=== PATIENT | male | born 1950 | race Caucasian/White ===

== ENCOUNTER → 2016-12-16 | Outpatient (CLI) | payer OTHER ==
[~2016-12-16] MED LIST: ACET1TAB84 PO; METO25TA3 PO
[2016-12-16 16:45] LABS: HEMATOCRIT 50.9 % (42-52); MEAN CELL VOLUME 86.9 fL (80-100); MEAN CORPUSCULAR HEMOGLOBIN 30.5 pg (25-34); MEAN CORPUSCULAR HGB CONC 35.2 g/dl (32-36); MEAN PLATELET VOLUME 9.5 fL (7.4-10.4); PLATELET COUNT 179 K/uL (130-400); RED BLOOD COUNT 5.86 M/uL (4.7-6.1); WHITE BLOOD COUNT 6.62 K/uL (4.8-10.8)
[2016-12-16 17:16] LABS: CALCIUM 9.7 mg/dl (8.5-10.1)
[2016-12-16 17:21] LABS: BLOOD UREA NITROGEN 14 mg/dl (7-18); BUN/CREATININE RATIO 12.4 (10-20); CARBON DIOXIDE 26 mmol/L (21-32); CHLORIDE 106 mmol/L (98-107); CHOLESTEROL 171 mg/dl (0-200); GLUCOSE 110 mg/dl (70-99); POTASSIUM 4.1 mmol/L (3.5-5.1); SODIUM 140 mmol/L (136-145)
[2016-12-16 17:26] LABS: CHOLESTEROL/HDL RATIO 3.8; FERRITIN 381.3 ng/ml (8.0-388.0); HDL CHOLESTEROL 45 mg/dl; LDL CHOLESTEROL CALCULATED 99 mg/dl; TOTAL IRON BINDING CAPACITY 367 mcg/dl (250-450); TRIGLYCERIDES 136 mg/dl (0-150); VERY LOW DENSITY LIPOPROT CALC 27 mg/dl
== END | disposition home or self-care (01) ==
LOC: C.LABBC 14:40
PROVIDERS: ATTEND Physician Assistant Medical
DX: E83.119 Hemochromatosis, unspecified (principal); I10 Essential (primary) hypertension; Z00.00 Encounter for general adult medical examination without abnormal findings

== ENCOUNTER → 2017-04-27 | Outpatient (CLI) | payer OTHER ==
[2017-04-27 17:45] LABS: BASO % 0.6 %; BASO ABS # 0.04 K/uL (0-0.2); COMPLETE YES; HEMATOCRIT 47.8 % (42-52); IG% 0.3 %; LYMPH % 40.6 %; LYMPH ABS # 2.58 K/uL (1.2-3.4); MEAN CELL VOLUME 86.8 fL (80-100); MEAN CORPUSCULAR HEMOGLOBIN 31.6 pg (25-34); MEAN CORPUSCULAR HGB CONC 36.4 g/dl (32-36); MEAN PLATELET VOLUME 9.3 fL (7.4-10.4); MONO % 10.6 %; NEUT % 42.9 %; PLATELET COUNT 159 K/uL (130-400); RED BLOOD COUNT 5.51 M/uL (4.7-6.1); WHITE BLOOD COUNT 6.35 K/uL (4.8-10.8)
[2017-04-27 18:12] LABS: FERRITIN 276.9 ng/ml (8.0-388.0); PROSTATE SPECIFIC ANTIGEN 1.89 ng/ml (0.000-4.000)
== END | disposition home or self-care (01) ==
LOC: C.LABBFT 15:40
PROVIDERS: ATTEND Internal Medicine
DX: Z00.00 Encounter for general adult medical examination without abnormal findings (principal); E83.119 Hemochromatosis, unspecified

== ENCOUNTER → 2017-09-13 | Outpatient (CLI) | payer OTHER ==
[2017-09-13 17:54] LABS: BASO % 0.5 %; BASO ABS # 0.03 K/uL (0-0.2); EOS ABS # 0.25 K/uL (0-0.5); HEMATOCRIT 48.9 % (42-52); HEMOGLOBIN 17.7 g/dL (14.0-18.0); IG# 0.02 K/uL (0.00-0.02); LYMPH % 35.8 %; LYMPH ABS # 2.21 K/uL (1.2-3.4); MEAN CELL VOLUME 87.8 fL (80-100); MEAN CORPUSCULAR HEMOGLOBIN 31.8 pg (25-34); MEAN CORPUSCULAR HGB CONC 36.2 g/dl (32-36); MEAN PLATELET VOLUME 9.3 fL (7.4-10.4); MONO % 11.5 %; MONO ABS # 0.71 K/uL (0.11-0.59); NEUT % 47.9 %; NEUT ABS # 2.96 K/uL (1.4-6.5); PLATELET COUNT 155 K/uL (130-400); RED CELL DISTRIBUTION WIDTH CV 13.2 % (11.5-14.5); RED CELL DISTRIBUTION WIDTH SD 42.2 fL (36.4-46.3); WHITE BLOOD COUNT 6.18 K/uL (4.8-10.8)
== END | disposition home or self-care (01) ==
LOC: C.LABBFT 14:40
PROVIDERS: ATTEND Internal Medicine
DX: E83.119 Hemochromatosis, unspecified (principal)

== ENCOUNTER → 2017-09-20 | Outpatient (CLI) | payer OTHER ==
--- NOTE | 2017-09-20 17:48 | DIAGNOSTIC IMAGING REPORT ---
CHEST 2 VIEWS ROUTINE CLINICAL HISTORY: COUGH COMPARISON STUDY: Chest radiograph March 30, 2014. FINDINGS: Lung volumes are mildly diminished. No pneumothorax or pleural effusion is noted. Linear left lung opacity suggests atelectasis. No consolidation to suggest pneumonia. Cardiomediastinal silhouette is stable. Pulmonary vascularity is normal. IMPRESSION: No acute cardiopulmonary findings. Electronically signed by: Jovan Yun M.D. 09/20/2017 5:47 PM Dictated Date/Time: 09/20/2017 5:46 PM
== END | disposition home or self-care (01) ==
LOC: C.RAD 17:31
PROVIDERS: ATTEND Nurse Practitioner Adult Health
DX: R05 Cough (principal)

== ENCOUNTER 2025-01-02 16:12 | Inpatient (IN) ==
--- NOTE | 2025-01-02 16:49 | Emergency Department Note ---
Impression & Plan SBO (small bowel obstruction) ADMIT ED Provider Note HPI: History obtained from patient. The patient is a 74-year-old gentleman with history of small bowel obstruction, who presents the emergency department with a chief complaint of nausea, vomiting, and diarrhea. Patient states his symptoms began this morning at about 9 AM with diarrhea. Patient states actually on arrival here to the ED that his symptoms are largely improved. He states when he did have bouts of diarrhea and vomiting they were fairly severe. Patient denies any chest pain or shortness of breath. On arrival here to the ED the patient is hemodynamically stable, he otherwise appears to be in no acute distress. ROS: - Per HPI Differential Diagnosis: Small bowel obstruction, viral gastroenteritis, acute cholecystitis, acute appendicitis, diverticulitis flare, colitis, amongst other potential pathologies. *Outpatient medications and allergy history reviewed. PE: General: Alert HEENT: Normocephalic, trachea midline Eyes: Extraocular eye movement is intact, no scleral erythema Pulmonary: Clear to auscultation bilaterally, no wheezing Cardio: Regular rate and rhythm GI: Abdomen is soft to palpation, there is moderate distention : No suprapubic tenderness MSK: No evidence of trauma or malformation of the extremities, no edema Skin: No evidence of rash Neuro: Alert, no focal deficits Psychiatric: Cooperative INDEPENDENT INTERPRETATIONS: classroom monitor: (As interpreted by myself): - An order was placed for continuous cardiac monitoring - Patient was noted to be in sinus rhythm with a rate of 70 EKG: (As interpreted by myself): Rate: 94 Rhythm: Normal sinus rhythm Intervals: Within normal limits ST changes: No ST elevation Time: 1654 Interventions provided in ED: - IV fluid bolus Medical Decision Making: IV was established and lab work obtained, patient was placed on diagnostic cardiac sonographer. Lab work shows a mild leukocytosis at 12.29, hemoglobin is slightly elevated at 18.6, platelet count is normal, CMP does not show any evidence of any critical findings. Troponin is negative x 1. EKG shows normal sinus rhythm without any acute ischemic changes. CT imaging of the abdomen pelvis was obtained and is suggestive of a small bowel obstruction. Patient has not had any active vomiting here in the ED, he was ordered IV fluids. Will forego NG tube at this point given the patient's lack of vomiting. I did discuss the patient's presentation with the on-call hospitalist, Dr. Horan, the patient was placed for admission in stable condition for further care. Consultants/Discussions held with other healthcare providers: - Hospitalist, Dr. Horan Disposition discussion held by myself with: - Patient and family at bedside Diagnosis: 1. Small bowel obstruction, acute 2. Diarrhea, acute 3. Nausea and vomiting, acute Disposition: Admission Fransisco Juarez DO Emergency Medicine Past Med/Surg History Problem List (Updated 01/02/25 @ 21:57 by Fransisco Juarez DO) SBO (small bowel obstruction) (Acute) Small bowel obstruction Encounter for pre-operative examination Esophagitis LA Grade C on EGD Dysphagia Nasal polyp History of squamous cell carcinoma face, left hand Erectile dysfunction Hereditary hemochromatosis Obesity (BMI 30-39.9) Prediabetes (Chronic) Vitamin D deficiency Chronic low back pain (Acute) Hemochromatosis (Acute) Hyperlipidemia (Acute) Hypertension (Acute) BPH w/o urinary obs/LUTS (Acute) Neurogenic claudication (Acute) Simple goiter (Acute) Medical History Hearing loss Bilateral Hearing Aids Esophagitis LA Grade C on EGD - reason for repeat procedure 01/03/25 Neurogenic claudication Hereditary hemochromatosis Swallowing difficulty hx - pts states no longer a problem after procedure 11/11/24 Simple goiter denies- per record Chronic low back pain Hypertension BPH (benign prostatic hyperplasia) Hyperlipidemia Prediabetes no longer taking Oral as per History of skin cancer on face Osteoarthritis History of kidney stones Anxiety Colon polyps Partial small bowel obstruction (03/30/14) Surgical History History of tooth extraction Upper Denture History of esophagogastroduodenoscopy (EGD) (11/11/24) History of cystoscopy History of colon resection History of wisdom tooth extraction History of excision of mass FACE. Malignant - 1.1 to 2cm. Status post surgery adjacent tissue transfer - cheeks. 10 sq cm or less. --under eyes H/O colonoscopy (2020) Hx of rotator cuff surgery right Hx of cholecystectomy Family History Brother Hemochromatosis Hypertension Father Memory loss Hemochromatosis Hypertension Mother , age 65 No problems noted. Other No family history of adverse response to anesthesia Denies family history of Ovarian cancer Prostate cancer Myocardial infarction Breast cancer Colorectal cancer Social History Smoking Status: Never smoker Tobacco Type: Smokeless Tobacco (Dip or Chew) Second Hand Exposure: No; Do You Dip or Chew Tobacco: No; Hx Alcohol Use: Yes Alcohol type: beer Alcohol Intake Frequency: Monthly or Less Hx Substance Use: No Preferred Language: Nauruan Communication Ability: Effective Visual Impairment: No Limitations Hearing Ability: Use of Hearing Aid Mac Operator Required: No Beliefs That Will Affect Care: None marital status: Current Living Situation: Spouse current occupational status: employed current occupation: self employed 2 days a week How many Children do You have: 3 Feels Safe at Home: Yes Childhood Exposure to Second-Hand Smoke: Yes caffeine: Yes (soda) Dental Care, Regularly: Yes Physical Activity Frequency: 5-6 Times per Week Seatbelt Use: always Sunscreen Use: Yes Assistive Devices: Denture - Upper and Hearing Aid - Bilateral Allergies Allergies Allergy/AdvReac Type Severity Reaction Status Date / Time No Known Allergies Allergy Verified 01/02/25 18:32 Home Meds Home Medications Medication Instructions Recorded Confirmed cholecalciferol (vitamin D3) 50 2,000 unit PO DAILY 06/18/21 01/02/25 mcg (2,000 unit) capsule atorvastatin 10 mg tablet 10 mg PO QAM 10/31/24 01/02/25 nystatin-triamcinolone 100,000 1 applic topical BID PRN prn 10/31/24 01/02/25 unit/gram-0.1 % topical ointment olmesartan 20 mg tablet 10 mg PO QAM 10/31/24 01/02/25 sildenafil (pulm.hypertension) 20 20 mg PO UD PRN prn 10/31/24 01/02/25 mg tablet Previous Rx's Medication Instructions Recorded metformin 500 mg tablet,extended 1,000 mg (2 x 500 mg) PO DAILY 06/10/24 release 24 hr #180 tabs pantoprazole 40 mg tablet,delayed 40 mg PO BID #60 tabs 11/11/24 release lorazepam 0.5 mg tablet 0.5 mg PO DAILY PRN 11/12/24 ANXIETY/AGITATION #30 tabs ondansetron HCl 4 mg tablet 4 mg PO Q8H PRN nausea and 01/02/25 vomiting #10 tabs Results & Data (ED) Vital Signs Vital Signs - 24 hr 01/02/25 16:15 01/02/25 16:44 01/02/25 18:09 Temperature 36.4 C L Temperature Source Temporal Artery Scan Pulse Rate 99 H 90 Pulse Rate [Apical] 92 H Respiratory Rate 18 21 17 Respiratory Effort / Characteristics Non-Labored Spontaneous Respiratory Depth Normal Respiratory Pattern Regular Blood Pressure 129/88 Blood Pressure [Right Arm] 145/95 H Blood Pressure Mean 101 Blood Pressure Mean [Right Arm] 111 Pulse Oximetry 93 91 93 Oxygen Delivery Method Room Air Room Air Room Air Sepsis Recent Fever Within 48 Hours No Sepsis New/Unexplained Change in Mental Status N/A Sepsis Action Taken by Nursing No Action Required 01/02/25 18:31 01/02/25 19:08 01/02/25 19:39 Temperature Temperature Source Pulse Rate 81 76 Pulse Rate [Apical] 91 H Respiratory Rate 22 20 Respiratory Effort / Characteristics Respiratory Depth Respiratory Pattern Blood Pressure 144/73 H Blood Pressure [Right Arm] 144/100 H Blood Pressure Mean 97 Blood Pressure Mean [Right Arm] 114 Pulse Oximetry 93 93 Oxygen Delivery Method Room Air Room Air Sepsis Recent Fever Within 48 Hours Sepsis New/Unexplained Change in Mental Status Sepsis Action Taken by Nursing 01/02/25 20:00 01/02/25 20:30 01/02/25 21:00 Temperature Temperature Source Pulse Rate 77 73 71 Pulse Rate [Apical] Respiratory Rate 24 20 16 Respiratory Effort / Characteristics Respiratory Depth Respiratory Pattern Blood Pressure 134/69 144/79 H 106/83 Blood Pressure [Right Arm] Blood Pressure Mean 93 98 88 Blood Pressure Mean [Right Arm] Pulse Oximetry 92 94 94 Oxygen Delivery Method Room Air Room Air Room Air Sepsis Recent Fever Within 48 Hours Sepsis New/Unexplained Change in Mental Status Sepsis Action Taken by Nursing 01/02/25 21:30 Temperature Temperature Source Pulse Rate 69 Pulse Rate [Apical] Respiratory Rate 20 Respiratory Effort / Characteristics Respiratory Depth Respiratory Pattern Blood Pressure 136/71 Blood Pressure [Right Arm] Blood Pressure Mean 91 Blood Pressure Mean [Right Arm] Pulse Oximetry 94 Oxygen Delivery Method Room Air Sepsis Recent Fever Within 48 Hours Sepsis New/Unexplained Change in Mental Status Sepsis Action Taken by Nursing Laboratory Data 01/02/25 17:00 01/02/25 17:00 Lab Results 01/02/25 01/02/25 01/02/25 Range/Units 17:00 18:07 18:47 WBC 12.29 H (4.8-10.8) K/ul RBC 5.89 (4.70-6.10) M/uL Hgb 18.6 H (14.0-18.0) g/dl Hct 51.2 (42.0-52.0) % MCV 86.9 (80.0-100.0) fL MCH 31.6 (25.0-34.0) pg MCHC 36.3 H (32.0-36.0) g/dL RDW Std Deviation 41.1 (36.4-46.3) fL RDW Coeff of Conner 13.0 (11.5-14.5) % Plt Count 193 (130-400) K/uL MPV 8.9 L (9.4-12.4) fL Immature Gran % (Auto) 0.4 % Neut % (Auto) 87.3 % Lymph % (Auto) 6.0 % [place] % (Auto) 5.6 % Eos % (Auto) 0.3 % Baso % (Auto) 0.4 % Neut # (Auto) 10.72 H (1.40-6.50) K/uL Lymph # (Auto) 0.74 L (1.20-3.40) K/uL [place] # (Auto) 0.69 H (0.11-0.59) K/uL Eos # (Auto) 0.04 (0.00-0.50) K/uL Baso # (Auto) 0.05 (0.00-0.20) K/uL Immature Gran # (Auto) 0.05 (0.01-0.20) K/uL Sodium 139 (136-145) mmol/L Potassium 4.5 (3.5-5.1) mmol/L Chloride 105 (98-107) mmol/L Carbon Dioxide 25 (21-32) mmol/L Anion Gap 9 (3-11) BUN 11 (6-23) mg/dl Creatinine 0.88 (0.6-1.4) mg/dl Est Cr Clr Drug Dosing 101.2 ml/min eGFR 90.23 BUN/Creatinine Ratio 12.5 (10-20) Glucose 148 H (70-99(Fasting)) mg/dl Calcium 9.7 (8.6-10.3) mg/dl Total Bilirubin 1.5 H (0.2-1.0) mg/dl AST 23 (13-39) U/L ALT 26 (7-52) U/L Alkaline Phosphatase 58 (34-104) U/L Troponin I High Sens 11.8 (0-20) pg/ml Total Protein 7.7 (6.0-8.3) gm/dl Albumin 4.6 (3.4-5.0) gm/dl Globulin 3.1 (2.5-4.0) gm/dl Albumin/Globulin Ratio 1.5 (0.9-2) Lipase 14 (11-82) U/L Urine Color Dark Yellow Urine Appearance Clear (Clear) Urine pH 5.5 (4.5-7.5) Ur Specific [place] 1.030 (1.000-1.030) Urine Protein 1+ H (Negative) Urine Glucose (UA) Negative (Negative) Urine Ketones Trace H (Negative) Urine Blood Negative (Negative) Urine Nitrite Negative (Negative) Urine Bilirubin 1+ H (Negative) Urine Urobilinogen Negative (Negative) Ur Leukocyte Esterase 1+ H (Negative) Urine WBC (Auto) 0-5 (0-5) /hpf Urine RBC (Auto) 3-5 H (0-2) /hpf U Hyaline Cast (Auto) 0-2 (0-2) /lpf U Epithel Cells (Auto) 0-2 (0-2) /hpf Urine Bacteria (Auto) None Seen (None Seen) Urine Comment Stl C. cayetanensis PCR Not Detected (NotDetected) Stool Rotavirus A PCR Not Detected (NotDetected) Stl Adenov F 40/41 PCR Not Detected (NotDetected) Stool Astrovirus (PCR) Not Detected (NotDetected) Stool Campylobacter PCR Not Detected (NotDetected) Stl C. diff Tox B Gene Negative Cdiff Gene (Neg) Stl C. diff [id number] NEGATIVE Stool Cryptosporidium PCR Not Detected (NotDetected) Stl E.coli Shiga Tox PCR Not Detected (NotDetected) Stl Enterotoxigenic E PCR Not Detected (NotDetected) Stool EPEC (PCR) Not Detected (NotDetected) Stool EAEC (PCR) Not Detected (NotDetected) Stl E. histolytica PCR Not Detected (NotDetected) Stool Giardia Lamblia PCR Not Detected (NotDetected) Stool Salmonella PCR Not Detected (NotDetected) Stool Sapovirus (PCR) Not Detected (NotDetected) Stl P. shigelloides PCR Not Detected (NotDetected) Stl Shigella/EIEC PCR Not Detected (NotDetected) St Y.enterocolitica PCR Not Detected (NotDetected) Stool Vibrio (PCR) Not Detected (NotDetected) Stl Vibrio cholerae PCR Not Detected (NotDetected) Stl Norovirus GI/GII PCR Not Detected (NotDetected) Administered Medications Discontinued Medications Sodium Chloride (Nss) 500 mls @ 999 mls/hr IV .Q31M STA Stop: 01/02/25 17:18 Last Infusion: 01/02/25 17:37 Dose: Infused Documented By: Admin: 01/02/25 17:04 Dose: 999 mls/hr Documented By: CAP Sodium Chloride (Nss) 1,000 mls @ 999 mls/hr IV .Q1H1M ONE Stop: 01/02/25 19:24 Last Infusion: 01/02/25 19:33 Dose: Infused Documented By: Admin: 01/02/25 18:32 Dose: 999 mls/hr Documented By: ARLET Ioversol (Optiray 320 100ml) 93 ml IV ONCE ONE Stop: 01/02/25 18:04 Last Admin: 01/02/25 18:04 Dose: 93 ml Documented By: CHRISTINA Imaging Data Radiologist's Impression: Abdomen/Pelvis CT 01/02/25 17:08 Clinical History: Nausea and vomiting Technique: Axial computed tomography images were obtained of the abdomen and pelvis after the administration of intravenous contrast. No prior CT is available for comparison. Findings: The liver is overall of normal size, attenuation, and contour with no sign of cirrhosis or significant fatty infiltration. No liver mass lesion is seen. The portal vein is patent. The gallbladder appears to have been removed. No bile duct dilatation is noted. The spleen is enlarged measuring 15.8 cm. No focal splenic lesion is evident. The pancreas appears normal with no sign of acute or chronic pancreatitis and no mass lesion noted. The pancreatic duct is of normal caliber. The adrenal glands appear unremarkable. No definite renal or proximal ureteral calculi are seen on this contrast-enhanced study. There is no hydronephrosis or perinephric stranding. No renal mass lesion is identified. There are several left renal cysts, measuring up to 2 cm The aorta is of normal caliber. No abdominal adenopathy is seen. There is a small hiatal hernia. There is small bowel dilatation, concerning for small bowel obstruction at the level of the mid ileum. There is diverticulosis without evidence of diverticulitis. The appendix appears normal. No free intraperitoneal fluid or air is identified. There is a 9 mm bladder calculus. No bladder mass lesion is evident. The prostate is enlarged measuring 6.7 cm. The iliac arteries are of normal caliber. No pelvic adenopathy is noted. There are small bilateral inguinal hernias containing only fat. There is bilateral lower lobe atelectasis. There is extensive coronary atherosclerosis. There are calcified right hilar lymph nodes Lumbar degenerative disc disease is seen. There is grade 1 anterolisthesis at L4-5 due to L4 pars defects. There are mild T12 and L1 compression fractures, likely old. No focal osseous lesion is seen Impression: 1. Apparent small bowel obstruction at the level of the mid ileum 2. Splenomegaly 3. Left renal cysts 4. Small hiatal hernia 5. Diverticulosis without definite diverticulitis 6. Bladder calculus 7. Enlarged prostate. Correlation with PSA levels may be useful 8. Extensive coronary atherosclerosis 9. Mild T12 and L1 compression fractures, likely old ACT 112: Positive. There are findings on this exam that require communication between the performing entity and the patient following Patient Test Result Information Act ([place] ACT 112) guidelines. Electronically signed by Lorenzo Anglin 01-02-2025 6:17 PM Discharge Plan Visit Data Chief Complaint: GI Assessment Stated Complaint: GI, N/V/D ED Provider: Fransisco Juarez Discharge Problem: SBO (small bowel obstruction) Patient Disposition: Admitted As Inpatient Condition: Fair Discharge Instructions Interventions: ED Discharge Assessment Last Done: 01/02/25 21:48 Forms Stand Alone Forms: My [employer] Prescriptions Prescriptions: No Action cholecalciferol (vitamin D3) 50 mcg (2,000 unit) capsule 2,000 unit PO DAILY Patient Comments: takes in the am metformin 500 mg tablet extended release 24 hr 1,000 mg PO DAILY Qty: 180 2RF Hold Instructions: pt stopped due to dizziness Patient Comments: "He stopped taking that himself but don't take it off his list" per lorazepam 0.5 mg tablet 0.5 mg PO DAILY PRN (Reason: ANXIETY/AGITATION) Qty: 30 0RF ondansetron HCl 4 mg tablet 4 mg PO Q8H PRN (Reason: nausea and vomiting) Qty: 10 0RF atorvastatin 10 mg tablet 10 mg PO QAM nystatin-triamcinolone 100,000-0.1 unit/gram-% ointment 1 applic topical BID PRN (Reason: prn) Rx Instructions: x 2 weeks olmesartan 20 mg tablet 10 mg PO QAM sildenafil (pulm.hypertension) 20 mg tablet 20 mg PO UD PRN (Reason: prn) Rx Instructions: 20 mg tablet take 2-3 po daily prn intercourse pantoprazole 40 mg tablet,delayed release (DR/EC) 40 mg PO BID Qty: 60 5RF Referrals Referrals: Jeanette Schmitt MD [Primary Care Provider] -
[2025-01-02] MEDS: SODIUM CHLORIDE 0.9% 500 ML IV STA (17:04)
[2025-01-02 17:15] LABS: Basophils # (auto) 0.05 K/uL (0.00-0.20); Basophils % (auto) 0.4 %; Eosinophils # (auto) 0.04 K/uL (0.00-0.50); Eosinophils % (auto) 0.3 %; Hematocrit (blood only) 51.2 % (42.0-52.0); Hemoglobin 18.6 g/dl (14.0-18.0); Immature Granulocytes # (auto) 0.05 K/uL (0.01-0.20); Immature Granulocytes % (auto) 0.4 %; Lymphocytes # (auto) 0.74 K/uL (1.20-3.40); Mean Corpuscular Hemoglobin 31.6 pg (25.0-34.0); Mean Corpuscular Hgb Conc 36.3 g/dL (32.0-36.0); Mean Corpuscular Volume 86.9 fL (80.0-100.0); Mean Platelet Volume 8.9 fL (9.4-12.4); Monocytes # (auto) 0.69 K/uL (0.11-0.59); Monocytes % (auto) 5.6 %; Neutrophils # (auto) 10.72 K/uL (1.40-6.50); Neutrophils % (auto) 87.3 %; Platelet Count 193 K/uL (130-400); RDW Standard Deviation 41.1 fL (36.4-46.3); Red Blood Count 5.89 M/uL (4.70-6.10); White Blood Count 12.29 K/ul (4.8-10.8)
[2025-01-02 17:32] LABS: Albumin Globulin Ratio 1.5 (0.9-2); Albumin Level 4.6 gm/dl (3.4-5.0); BUN Creatinine Ratio 12.5 (10-20); Bilirubin,Total 1.5 mg/dl (0.2-1.0); Calcium 9.7 mg/dl (8.6-10.3); Creatinine Clr Calc Pharmacy 101.2 ml/min; Globulin 3.1 gm/dl (2.5-4.0); Potassium 4.5 mmol/L (3.5-5.1); Total Protein 7.7 gm/dl (6.0-8.3)
[2025-01-02 17:38] LABS: Troponin I High Sensitivity 11.8 pg/ml (0-20)
[2025-01-02] MEDS: OPTIRAY 320 100ml IV ONE (18:04)
--- NOTE | 2025-01-02 18:20 | CT Scan Report ---
Clinical History: Nausea and vomiting Technique: Axial computed tomography images were obtained of the abdomen and pelvis after the administration of intravenous contrast. No prior CT is available for comparison. Findings: The liver is overall of normal size, attenuation, and contour with no sign of cirrhosis or significant fatty infiltration. No liver mass lesion is seen. The portal vein is patent. The gallbladder appears to have been removed. No bile duct dilatation is noted. The spleen is enlarged measuring 15.8 cm. No focal splenic lesion is evident. The pancreas appears normal with no sign of acute or chronic pancreatitis and no mass lesion noted. The pancreatic duct is of normal caliber. The adrenal glands appear unremarkable. No definite renal or proximal ureteral calculi are seen on this contrast-enhanced study. There is no hydronephrosis or perinephric stranding. No renal mass lesion is identified. There are several left renal cysts, measuring up to 2 cm The aorta is of normal caliber. No abdominal adenopathy is seen. There is a small hiatal hernia. There is small bowel dilatation, concerning for small bowel obstruction at the level of the mid ileum. There is diverticulosis without evidence of diverticulitis. The appendix appears normal. No free intraperitoneal fluid or air is identified. There is a 9 mm bladder calculus. No bladder mass lesion is evident. The prostate is enlarged measuring 6.7 cm. The iliac arteries are of normal caliber. No pelvic adenopathy is noted. There are small bilateral inguinal hernias containing only fat. There is bilateral lower lobe atelectasis. There is extensive coronary atherosclerosis. There are calcified right hilar lymph nodes Lumbar degenerative disc disease is seen. There is grade 1 anterolisthesis at L4-5 due to L4 pars defects. There are mild T12 and L1 compression fractures, likely old. No focal osseous lesion is seen Impression: 1. Apparent small bowel obstruction at the level of the mid ileum 2. Splenomegaly 3. Left renal cysts 4. Small hiatal hernia 5. Diverticulosis without definite diverticulitis 6. Bladder calculus 7. Enlarged prostate. Correlation with PSA levels may be useful 8. Extensive coronary atherosclerosis 9. Mild T12 and L1 compression fractures, likely old ACT 112: Positive. There are findings on this exam that require communication between the performing entity and the patient following Patient Test Result Information Act ([place] ACT 112) guidelines. Electronically signed by Lorenzo Anglin 01-02-2025 6:17 PM
[2025-01-02 18:22] LABS: Appearance Urine Clear (Clear); Bacteria Urine Automated None Seen (None Seen); Bilirubin Urine 1+ (Negative); Blood Urine Negative (Negative); Cast Urine Automated 0-2 /lpf (0-2); Color Urine Dark Yellow; Epithelial Cell Urine Auto 0-2 /hpf (0-2); Glucose Urine UA Negative (Negative); Ketones Urine Trace (Negative); Leukocyte Esterase Urine 1+ (Negative); Nitrite Urine Negative (Negative); Protein Urine 1+ (Negative); Urobilinogen Urine Negative (Negative); WBC Urine Automated 0-5 /hpf (0-5); pH Urine 5.5 (4.5-7.5)
[2025-01-02] MEDS: SODIUM CHLORIDE 0.9% 1,000 ML IV ONE (18:32)
[2025-01-02 19:51] LABS: C. diff 027-NAP1-BI NEGATIVE; Cdiff Toxin B Gene (2yr or >) Negative Cdiff Gene (Neg)
--- NOTE | 2025-01-02 20:06 | History & Physical Report ---
Date of Service January 02, 2025 Assessment & Plan (1) Small bowel obstruction: Plan 74-year-old male PMHx HLD, HTN, hereditary hemochromatosis, prediabetes, spinal stenosis, and prior bowel obstruction presenting for "violent" vomiting and nausea starting day of arrival. Did have 1 episode of diarrhea. ED evaluation reveals CBC leukocytosis 12.29, stable H&H; CMP glucose 148, bilirubin 1.5; lipase 14; troponin 11.8; UA with bilirubin, LE, RBC; stool sample pending; CTAP small bowel obstruction level of mid ileum, splenomegaly, left renal cyst, small hiatal hernia, diverticulosis, bladder calculus, large prostate, extensive coronary atherosclerosis; EKG NSR, LAD at 94 bpm.; Provided with 1.5 mL NSS in ED. #SBO Abdominal pain starting 1400 the day [employer], associated N/V x 6 times total, 1 episode of diarrhea. Prior history of bowel obstruction. - CBC 12.29, H&H stable; CMP glucose 148, bili 1.5; lipase 14 - CBC, BMP am - CTAP small bowel obstruction at level of mid ileum - Pain management acetaminophen, morphine as severe/breakthrough - Zofran IV - NPO for now - IVF w/ LR @ 125 mL/hr - NG tube if continued vomiting - Gen sx consulted- appreciate input + recs #Prediabetes- Admitting glucose 148; Metformin - hold given recent CT contrast, add SSI if needed; BSG q6hr while NPO #Anxiety- Lorazepam prn - continue once diet advances; Changed to IV while NPO #HLD- Atorvastatin - continue once diet advances #HTN- Olmesartan - continue once diet advances #GERD- Pantoprazole - continue once diet advances Dispo: Admit, med/sx VTE prophylaxis: SCDs This document was dictated utilizing [employer] Please excuse any grammatical errors that may be secondary to use of this software. Admission and Anticipated Discharge Date Admission Date: 01/02/2025 History of Present Illness Chief Complaint: N/V Primary Care Provider: Jeanette Schmitt MD 74-year-old male PMHx HLD, HTN, hereditary hemochromatosis, prediabetes, spinal stenosis, and prior bowel obstruction presenting for "violent" vomiting and nausea starting day of arrival. At 0900 the patient had an episode of diarrhea, which was the first time he has had that throughout this course. He then had 3 episodes of "aggressive" vomiting, no blood, at around 1300. He was able to rest for a little and then had another 3 episodes of this. He continued to have some abdominal pain, stating it was a 5-6 out of 10 on the pain scale at its worst, currently 0 out of 10 on the pain scale. He is not having any nausea or vomiting at present. He had a bowel obstruction in the past. Had colonoscopy in the past as well. Denies fever/chills, chest pain, SOB, palpitations, constipation, numbness/tingling, LUTS, URI symptoms, or weakness/syncope. He is asking for his lorazepam at night. ED evaluation reveals CBC leukocytosis 12.29, stable H&H; CMP glucose 148, bilirubin 1.5; lipase 14; troponin 11.8; UA with bilirubin, LE, RBC; stool sample pending; CTAP small bowel obstruction level of mid ileum, splenomegaly, left renal cyst, small hiatal hernia, diverticulosis, bladder calculus, large prostate, extensive coronary atherosclerosis; EKG NSR, LAD at 94 bpm.; Provided with 1.5 mL NSS in ED. Please see Dr. Horan's attestation for adjustments/additions to treatment plan. Allergies Allergy/AdvReac Type Severity Reaction Status Date / Time No Known Allergies Allergy Verified 01/02/25 18:32 Home Medications Medication Instructions Recorded Confirmed Type cholecalciferol (vitamin D3) 50 2,000 unit PO DAILY 06/18/21 01/02/25 History mcg (2,000 unit) capsule metformin 500 mg tablet,extended 1,000 mg (2 x 500 mg) PO DAILY 06/10/24 01/02/25 Rx release 24 hr #180 tabs atorvastatin 10 mg tablet 10 mg PO QAM 10/31/24 01/02/25 History nystatin-triamcinolone 100,000 1 applic topical BID PRN prn 10/31/24 01/02/25 History unit/gram-0.1 % topical ointment olmesartan 20 mg tablet 10 mg PO QAM 10/31/24 01/02/25 History sildenafil (pulm.hypertension) 20 20 mg PO UD PRN prn 10/31/24 01/02/25 History mg tablet pantoprazole 40 mg tablet,delayed 40 mg PO BID #60 tabs 11/11/24 01/02/25 Rx release lorazepam 0.5 mg tablet 0.5 mg PO DAILY PRN 11/12/24 01/02/25 Rx ANXIETY/AGITATION #30 tabs ondansetron HCl 4 mg tablet 4 mg PO Q8H PRN nausea and 01/02/25 01/02/25 Rx vomiting #10 tabs Past Med/Surg History Problem List SBO (small bowel obstruction) (Acute) Small bowel obstruction Encounter for pre-operative examination Esophagitis LA Grade C on EGD Dysphagia Nasal polyp History of squamous cell carcinoma face, left hand Erectile dysfunction Hereditary hemochromatosis Obesity (BMI 30-39.9) Prediabetes (Chronic) Vitamin D deficiency Chronic low back pain (Acute) Hemochromatosis (Acute) Hyperlipidemia (Acute) Hypertension (Acute) BPH w/o urinary obs/LUTS (Acute) Neurogenic claudication (Acute) Simple goiter (Acute) Medical History Hearing loss Bilateral Hearing Aids Esophagitis LA Grade C on EGD - reason for repeat procedure 01/03/25 Neurogenic claudication Hereditary hemochromatosis Swallowing difficulty hx - pts states no longer a problem after procedure 11/11/24 Simple goiter denies- per record Chronic low back pain Hypertension BPH (benign prostatic hyperplasia) Hyperlipidemia Prediabetes no longer taking Oral as per History of skin cancer on face Osteoarthritis History of kidney stones Anxiety Colon polyps Partial small bowel obstruction (03/30/14) Surgical History History of tooth extraction Upper Denture History of esophagogastroduodenoscopy (EGD) (11/11/24) History of cystoscopy History of colon resection History of wisdom tooth extraction History of excision of mass FACE. Malignant - 1.1 to 2cm. Status post surgery adjacent tissue transfer - cheeks. 10 sq cm or less. --under eyes H/O colonoscopy (2020) Hx of rotator cuff surgery right Hx of cholecystectomy Family History Brother Hemochromatosis Hypertension Father Memory loss Hemochromatosis Hypertension Mother , age 65 No problems noted. Other No family history of adverse response to anesthesia Denies family history of Ovarian cancer Prostate cancer Myocardial infarction Breast cancer Colorectal cancer Social History Smoking Status: Never smoker Tobacco Type: Smokeless Tobacco (Dip or Chew) Second Hand Exposure: No; Do You Dip or Chew Tobacco: No; Hx Alcohol Use: Yes Alcohol type: beer Alcohol Intake Frequency: Monthly or Less Hx Substance Use: No Preferred Language: Romansh Communication Ability: Effective Visual Impairment: No Limitations Hearing Ability: Use of Hearing Aid Wine Steward/Stewardess Required: No Beliefs That Will Affect Care: None marital status: Current Living Situation: Spouse current occupational status: employed current occupation: self employed 2 days a week How many Children do You have: 3 Feels Safe at Home: Yes Childhood Exposure to Second-Hand Smoke: Yes caffeine: Yes (soda) Dental Care, Regularly: Yes Physical Activity Frequency: 5-6 Times per Week Seatbelt Use: always Sunscreen Use: Yes Assistive Devices: Denture - Upper and Hearing Aid - Bilateral Review of Systems Review of Systems: All systems reviewed & are unremarkable except as noted in Subjective Physical Exam Physical Exam: General: No acute distress, well developed. Skin: Warm and dry, without rashes or lesions. No cyanosis or clubbing Head: Normocephalic, atraumatic Eyes: PERRL, conjunctivae clear, sclera non-icteric; EOM intact ENT: External ear and ear canal without swelling; nose atraumatic; good dentition, tongue normal appearance, pharynx normal without tonsillar swelling or exudate Neck: Supple, no LAD; no JVD Cardio: RRR, no M/G/R, S1 and S2 normal Resp: Chest wall symmetric, normal respiratory effort; No respiratory distress, Lungs CTA in all lobes bilaterally, no wheezes, rales, or rhonchi Abdomen: Soft, symmetric, distended, nontender; No visible lesions or scars; No masses or hepatosplenomegaly; Bowel sounds normoactive MSK: No deformities, full ROM throughout; pulses palpable and equal; no edema. Neuro: Awake, alert; Muscle strength 5/5 bilaterally in UE/LE; Sensation intact bilaterally; CN intact Psych: Appropriate mood and affect; good judgement and insight. 2 daughters present in room at time of v isit. Results & Data Results & Data Vital Signs (Past 12 Hours) Vital Signs Temp Pulse Pulse Resp BP BP Pulse Ox 01/02/25 19:39 76 20 144/73 H 93 01/02/25 19:08 81 01/02/25 18:31 91 H 22 144/100 H 93 01/02/25 18:09 90 17 93 01/02/25 16:44 92 H 21 145/95 H 91 01/02/25 16:15 36.4 C L 99 H 18 129/88 93 O2 Del Method 01/02/25 19:39 Room Air 01/02/25 19:08 01/02/25 18:31 Room Air 01/02/25 18:09 Room Air 01/02/25 16:44 Room Air 01/02/25 16:15 Room Air Laboratory Results 01/02/25 01/02/25 01/02/25 18:47 18:07 17:00 WBC 12.29 H RBC 5.89 Hgb 18.6 H Hct 51.2 MCV 86.9 MCH 31.6 MCHC 36.3 H RDW Std Deviation 41.1 RDW Coeff of Conner 13.0 Plt Count 193 MPV 8.9 L Immature Gran % (Auto) 0.4 Neut % (Auto) 87.3 Lymph % (Auto) 6.0 [place] % (Auto) 5.6 Eos % (Auto) 0.3 Baso % (Auto) 0.4 Neut # (Auto) 10.72 H Lymph # (Auto) 0.74 L [place] # (Auto) 0.69 H Eos # (Auto) 0.04 Baso # (Auto) 0.05 Immature Gran # (Auto) 0.05 Sodium 139 Potassium 4.5 Chloride 105 Carbon Dioxide 25 Anion Gap 9 BUN 11 Creatinine 0.88 Est Cr Clr Drug Dosing 101.2 eGFR 90.23 BUN/Creatinine Ratio 12.5 Glucose 148 H Calcium 9.7 Total Bilirubin 1.5 H AST 23 ALT 26 Alkaline Phosphatase 58 Troponin I High Sens 11.8 Total Protein 7.7 Albumin 4.6 Globulin 3.1 Albumin/Globulin Ratio 1.5 Lipase 14 Urine Color Dark Yellow Urine Appearance Clear Urine pH 5.5 Ur Specific [place] 1.030 Urine Protein 1+ H Urine Glucose (UA) Negative Urine Ketones Trace H Urine Blood Negative Urine Nitrite Negative Urine Bilirubin 1+ H Urine Urobilinogen Negative Ur Leukocyte Esterase 1+ H Urine WBC (Auto) 0-5 Urine RBC (Auto) 3-5 H U Hyaline Cast (Auto) 0-2 U Epithel Cells (Auto) 0-2 Urine Bacteria (Auto) None Seen Urine Comment Stl C. diff Tox B Gene Negative Cdiff Gene Stl C. diff [id number] NEGATIVE Diagnostic Findings Abdomen/Pelvis CT 01/02/25 17:08 Clinical History: Nausea and vomiting Technique: Axial computed tomography images were obtained of the abdomen and pelvis after the administration of intravenous contrast. No prior CT is available for comparison. Findings: The liver is overall of normal size, attenuation, and contour with no sign of cirrhosis or significant fatty infiltration. No liver mass lesion is seen. The portal vein is patent. The gallbladder appears to have been removed. No bile duct dilatation is noted. The spleen is enlarged measuring 15.8 cm. No focal splenic lesion is evident. The pancreas appears normal with no sign of acute or chronic pancreatitis and no mass lesion noted. The pancreatic duct is of normal caliber. The adrenal glands appear unremarkable. No definite renal or proximal ureteral calculi are seen on this contrast-enhanced study. There is no hydronephrosis or perinephric stranding. No renal mass lesion is identified. There are several left renal cysts, measuring up to 2 cm The aorta is of normal caliber. No abdominal adenopathy is seen. There is a small hiatal hernia. There is small bowel dilatation, concerning for small bowel obstruction at the level of the mid ileum. There is diverticulosis without evidence of diverticulitis. The appendix appears normal. No free intraperitoneal fluid or air is identified. There is a 9 mm bladder calculus. No bladder mass lesion is evident. The prostate is enlarged measuring 6.7 cm. The iliac arteries are of normal caliber. No pelvic adenopathy is noted. There are small bilateral inguinal hernias containing only fat. There is bilateral lower lobe atelectasis. There is extensive coronary atherosclerosis. There are calcified right hilar lymph nodes Lumbar degenerative disc disease is seen. There is grade 1 anterolisthesis at L4-5 due to L4 pars defects. There are mild T12 and L1 compression fractures, likely old. No focal osseous lesion is seen Impression: 1. Apparent small bowel obstruction at the level of the mid ileum 2. Splenomegaly 3. Left renal cysts 4. Small hiatal hernia 5. Diverticulosis without definite diverticulitis 6. Bladder calculus 7. Enlarged prostate. Correlation with PSA levels may be useful 8. Extensive coronary atherosclerosis 9. Mild T12 and L1 compression fractures, likely old ACT 112: Positive. There are findings on this exam that require communication between the performing entity and the patient following Patient Test Result Information Act ([place] ACT 112) guidelines. Electronically signed by Lorenzo Anglin 01-02-2025 6:17 PM Medications Administered 1.5L NSS ECG Additional Comments: NSR, LAD 94 bpm, [place] 160, QRS 82, QT/QTc 360/455, PRT 7/-43/5 Code Status & VTE Plan Code Status Full Supervising Physician Co-Signing Physician Notes Patient seen and examined, chart reviewed, case discussed with ANIL Montes and I agree with the assessment and plan as above. In brief, patient is a pleasant 74yo male with history of hereditary hemochronatosis, prior SBO presenting with SBO. Symptoms ongoing since earlier today. Afebrile, HD stable on exam Mild abdominal distention, some discomfort on exam, diminished bowel sounds +S1/S2, regular, no m/r/g Lungs CTA anteriorly Labs and images reviewed WBC=12.29 Hgb=18.6 CT of the Abdomen with apparent SBO at the level of the mid ileum Assessment/Plan 74yo male presenting with SBO. Presently pain well controlled, no additional nausea or vomiting -Admit to medical -Maintain NPO -Continue IVF -Pain control and anti-emetics as needed -Remainder as above PG Care Time/CCT Total # of Minutes Spent Total Time Spent with Patient: Total time spent is greater than 50% in coordination of care (as documented) at patient's floor/unit and/or counseling patient: Coding Level of Care Code 08019 INT INP/OBS CARE MIN Diagnoses Small bowel obstruction K56.609
[2025-01-02 20:23] LABS: Adenovirus F 40/41 PCR Not Detected (NotDetected); Astrovirus PCR Not Detected (NotDetected); Campylobacter PCR Not Detected (NotDetected); Cryptosporidium PCR Not Detected (NotDetected); Cyclospora cayetanensis PCR Not Detected (NotDetected); Entamoeba histolytica PCR Not Detected (NotDetected); Enteroaggregative E.coli(EAEC) Not Detected (NotDetected); Enteropathogenic E.coli (EPEC) Not Detected (NotDetected); Enterotoxigenic E.coli (ETEC) Not Detected (NotDetected); Giardia lamblia PCR Not Detected (NotDetected); Norovirus GI/GII PCR Not Detected (NotDetected); Plesiomonas shigelloides PCR Not Detected (NotDetected); Rotavirus A PCR Not Detected (NotDetected); Salmonella PCR Not Detected (NotDetected); Sapovirus PCR Not Detected (NotDetected); Shiga-like Toxin E.coli (STEC) Not Detected (NotDetected); Shigella/Enteroinvasive E.coli Not Detected (NotDetected); Vibrio cholerae PCR Not Detected (NotDetected); Vibrio species PCR Not Detected (NotDetected); Yersinia enterocolitica PCR Not Detected (NotDetected)
--- NOTE | 2025-01-02 20:45 | Surgery Consultation ---
Date of Consultation January 02, 2025 Assessment & Plan (1) Small bowel obstruction: The patient is being admitted on the hospitalist service. From a surgical perspective we recommend the following: Implement n.p.o. status Provide IV fluid for hydration Follow serial labs I suspect the patient's small bowel obstruction is likely on the basis of adhesions due to his previous surgeries. I discussed with the patient that we will implement conservative measures as outlined above with plans to reinstitute diet beginning with clear liquids once he has improvement of his abdominal exam and more consistent bowel function. I did discuss with the patient that at the present time since he is not having abdominal pain and he has not had any emesis in nearly 6 hours we can withhold placing NG tube at this time, but I did inform the patient that if he does develop worsening abdominal pain, worsening abdo emily distention, or if any further emesis ensues we will need to revisit the use of this modality and he expresses understanding If the patient does not open up within the next few days consideration may be given to performing repeat abdominal imaging utilizing oral contrast At the time of my interview the patient is nontoxic-appearinghe is normotensive without tachycardia or fever and only exhibits a slight leukocytosis and does not have acute kidney injury therefore I feel conservative measures are warranted at this time Additional recommendations to be forthcoming based on his clinical course as unfolds History of Present Illness Reason for Consultation: Small bowel obstruction History of Present Illness This is a 74-year-old male who presented the emergency department secondary to abdominal pain. Patient says that last night when he went to bed he was in his usual state of health feeling fine. He said this morning he noted some abdominal distention and then developed some abdominal pain and 3 episodes of diarrhea followed by multiple episodes of nausea and vomiting. He does report he has not had any emesis approximately 2 PM. He denies any fevers, shakes, or chills. He notes that he has had multiple surgeries including an open cholecystectomy in the 1970s, as well as an exploratory laparotomy secondary to small bowel obstruction approximate 20 years ago. Patient says he has not had any further small bowel obstruction since his exploratory laparotomy. He notes that he has had a colonoscopy within the past 5 years and the best of his knowledge there is no concerning pathology noted on this study. Since arrival to the emergency department he has not had any emesis and he has had 2 loose bowel movements since arrival to the emergency department. Since arrival to the hospital this patient has had labs and imaging which independent reviewed. A CT scan of the abdomen and pelvis showed the patient had small bowel dilatation concerning for small bowel obstruction at the level of the mid ileum. There is no free intraperitoneal air or free intraperitoneal fluid. Labs included CBC white blood cell count was elevated 12.2. Hemoglobin and hematocrit are 18.6 and 51.2. Platelet count was normal. Chemistry profile showed sodium and potassium as well as the BUN and creatinine were normal. There is no elevation of patient's LFTs other than as an elevation of his bilirubin at 1.5. His lipase was not elevated. Urinalysis did show 1+ leukocyte Estrace but was otherwise not indicative of infection. Patient did have multiple stool studies tested and all stool studies are thus far negative including stool for C. difficile. An EKG did show normal sinus rhythm. There did not appear to be any changes indicative of acute ischemia. At the time of my interview he was resting comfortably in bed he was in no distress. Allergies Allergy/AdvReac Type Severity Reaction Status Date / Time No Known Allergies Allergy Verified 01/02/25 18:32 Home Medications Medication Instructions Recorded Confirmed Type cholecalciferol (vitamin D3) 50 2,000 unit PO DAILY 06/18/21 01/02/25 History mcg (2,000 unit) capsule metformin 500 mg tablet,extended 1,000 mg (2 x 500 mg) PO DAILY 06/10/24 01/02/25 Rx release 24 hr #180 tabs atorvastatin 10 mg tablet 10 mg PO QAM 10/31/24 01/02/25 History nystatin-triamcinolone 100,000 1 applic topical BID PRN prn 10/31/24 01/02/25 History unit/gram-0.1 % topical ointment olmesartan 20 mg tablet 10 mg PO QAM 10/31/24 01/02/25 History sildenafil (pulm.hypertension) 20 20 mg PO UD PRN prn 10/31/24 01/02/25 History mg tablet pantoprazole 40 mg tablet,delayed 40 mg PO BID #60 tabs 11/11/24 01/02/25 Rx release lorazepam 0.5 mg tablet 0.5 mg PO DAILY PRN 11/12/24 01/02/25 Rx ANXIETY/AGITATION #30 tabs ondansetron HCl 4 mg tablet 4 mg PO Q8H PRN nausea and 01/02/25 01/02/25 Rx vomiting #10 tabs Patient History Medical History Hearing loss Bilateral Hearing Aids Esophagitis LA Grade C on EGD - reason for repeat procedure 01/03/25 Neurogenic claudication Hereditary hemochromatosis Swallowing difficulty hx - pts states no longer a problem after procedure 11/11/24 Simple goiter denies- per record Chronic low back pain Hypertension BPH (benign prostatic hyperplasia) Hyperlipidemia Prediabetes no longer taking Oral as per History of skin cancer on face Osteoarthritis History of kidney stones Anxiety Colon polyps Partial small bowel obstruction (03/30/14) Surgical History History of tooth extraction Upper Denture History of esophagogastroduodenoscopy (EGD) (11/11/24) History of cystoscopy History of colon resection History of wisdom tooth extraction History of excision of mass FACE. Malignant - 1.1 to 2cm. Status post surgery adjacent tissue transfer - cheeks. 10 sq cm or less. --under eyes H/O colonoscopy (2020) Hx of rotator cuff surgery right Hx of cholecystectomy Family History Brother Hemochromatosis Hypertension Father Memory loss Hemochromatosis Hypertension Mother , age 65 No problems noted. Other No family history of adverse response to anesthesia Denies family history of Ovarian cancer Prostate cancer Myocardial infarction Breast cancer Colorectal cancer Social History Smoking Status: Never smoker Tobacco Type: Smokeless Tobacco (Dip or Chew) Second Hand Exposure: No; Do You Dip or Chew Tobacco: No; Tobacco Cessation Education Requested by Patient: No Hx Alcohol Use: Yes Alcohol type: beer Alcohol Intake Frequency: Monthly or Less Hx Substance Use: No Preferred Language: [place] Islander Communication Ability: Effective Visual Impairment: No Limitations Hearing Ability: Use of Hearing Aid Synthetic Filament Spinner Required: No Beliefs That Will Affect Care: None marital status: Current Living Situation: Spouse current occupational status: employed current occupation: self employed 2 days a week How many Children do You have: 3 Other Information That Helps Us Care for You: No Feels Safe at Home: Yes Safety Concerns: Feels Safe At This Time Childhood Exposure to Second-Hand Smoke: Yes caffeine: Yes (soda) Dental Care, Regularly: Yes Physical Activity Frequency: 5-6 Times per Week Seatbelt Use: always Sunscreen Use: Yes Assistive Devices: Hearing Aid - Bilateral Review of Systems Review of Systems: All systems reviewed & are unremarkable except as noted in HPI & below Physical Exam Constitutional: WD/WN, vitals as above Eyes: no conjunctival abnormality ENMT: Ears: no hearing impairment and no external ear abnormality Mouth: no oropharynx abnormality Neck: trachea midline Respiratory: normal respiratory effort; no respiratory distress and no labored breathing Cardiovascular: Rate/Rhythm: regular rate and regular rhythm Gastrointestinal (Abdomen): Patient's abdomen has noted moderate distention. At the time of my exam there is no pain with palpation. There is no rigidity, rebound tenderness, guarding, or signs of peritonitis. He did have some tympany with percussion. Patient did have a well healed Papa incision in the right upper quadrant consistent with previous cholecystectomy. He also had a well-healed midline incision from previous exploratory laparotomy. Musculoskeletal: No calf tenderness Skin: no rashes Neurologic: moves all extremities Psychiatric: A+Ox3, euthymic affect Results & Data Vital Signs (Past 12 Hours) Vital Signs Temp Pulse Pulse Resp BP BP Pulse Ox 01/02/25 20:00 77 24 134/69 92 01/02/25 19:39 76 20 144/73 H 93 01/02/25 19:08 81 01/02/25 18:31 91 H 22 144/100 H 93 01/02/25 18:09 90 17 93 01/02/25 16:44 92 H 21 145/95 H 91 01/02/25 16:15 36.4 C L 99 H 18 129/88 93 O2 Del Method 01/02/25 20:00 Room Air 01/02/25 19:39 Room Air 01/02/25 19:08 01/02/25 18:31 Room Air 01/02/25 18:09 Room Air 01/02/25 16:44 Room Air 01/02/25 16:15 Room Air PG Care Time/CCT Total # of Minutes Spent Total Time Spent with Patient: Total time spent is greater than 50% in coordination of care (as documented) at patient's floor/unit and/or counseling patient: Coding Level of Care Code 50553 INT INP/OBS CARE MIN Diagnoses Small bowel obstruction K56.609
[2025-01-02] MEDS ORDERED: LORazepam 2 MG/1 ML VIAL IV PRN (22:25)
[2025-01-02] MEDS ORDERED: NALOXONE HCL 0.4 MG/1 ML VIAL/CARP IV PRN (22:25)
[2025-01-02] MEDS ORDERED: ONDANSETRON INJ 2 MG/ML 2 ML VIAL IV PRN (22:25)
[2025-01-02] MEDS ORDERED: ACETAMINOPHEN 325 MG TAB PO PRN (22:25)
[2025-01-02] MEDS ORDERED: MoRPHine SULFATE 2 MG/ML CARP IV PRN ×2 (22:25)
[2025-01-02] MEDS: LACTATED RINGER'S 1,000 ML IV SCH (22:45)
[2025-01-03 08:29] LABS: Hematocrit (blood only) 46.8 % (42.0-52.0); Hemoglobin 16.2 g/dl (14.0-18.0); Mean Corpuscular Hemoglobin 30.9 pg (25.0-34.0); Mean Corpuscular Hgb Conc 34.6 g/dL (32.0-36.0); Mean Corpuscular Volume 89.1 fL (80.0-100.0); Mean Platelet Volume 9.4 fL (9.4-12.4); Platelet Count 181 K/uL (130-400); RDW Coefficient of Variation 13.2 % (11.5-14.5); RDW Standard Deviation 42.7 fL (36.4-46.3); Red Blood Count 5.25 M/uL (4.70-6.10); White Blood Count 6.98 K/ul (4.8-10.8)
[2025-01-03] MEDS: PANTOprazole 40 MG/10 ML SYR IV SCH (08:51)
[2025-01-03 08:58] LABS: BUN Creatinine Ratio 14.5 (10-20); Calcium 8.8 mg/dl (8.6-10.3); Creatinine Clr Calc Pharmacy 108.5 ml/min; Potassium 4.1 mmol/L (3.5-5.1)
[2025-01-03 09:25] LABS: Hematocrit (blood only) 47.3 % (42.0-52.0); Hemoglobin 16.8 g/dl (14.0-18.0); Mean Corpuscular Hemoglobin 31.6 pg (25.0-34.0); Mean Corpuscular Hgb Conc 35.5 g/dL (32.0-36.0); Mean Corpuscular Volume 89.1 fL (80.0-100.0); Mean Platelet Volume 9.2 fL (9.4-12.4); Platelet Count 173 K/uL (130-400); RDW Coefficient of Variation 13.1 % (11.5-14.5); RDW Standard Deviation 42.7 fL (36.4-46.3); Red Blood Count 5.31 M/uL (4.70-6.10); White Blood Count 6.78 K/ul (4.8-10.8)
[2025-01-03 09:41] LABS: BUN Creatinine Ratio 13.5 (10-20); Creatinine Clr Calc Pharmacy 101.2 ml/min; Potassium 4.1 mmol/L (3.5-5.1)
--- NOTE | 2025-01-03 10:03 | Surgery Progress Note ---
Date of Service January 03, 2025 Assessment & Plan (1) SBO (small bowel obstruction): Plan: Patient seen and evaluated this morning with Dr. Bravo. -Patient doing well, states that he is feeling back to his self. Denies any abdominal pain, nausea or vomiting -States that he would like to eat and go home today. We discussed with him, and his daughter at bedside, about obtaining a KUB this morning. If KUB shows improvement, we will allow patient to have clear liquids this morning and can advance his diet as tolerated throughout the day. If he is able to tolerate oral intake he may potentially be able to be discharged later today. However, we did discuss with the patient that if he is unable to tolerate diet advancement, he will need to have his diet backed down and he will need to stay in the hospital for further management. Admission and Anticipated Discharge Date Admission Date: January 02, 2025 Subjective Patient doing well this morning and states he feels good Ambulating in hallway this morning Patient denies any ongoing abdominal pain, nausea or vomiting overnight Afebrile, WBC wnl, denies CP or SOB Physical Exam Constitutional: WD/WN, vitals as above Respiratory: normal respiratory effort, lungs clear to auscultation Cardiovascular: Rate/Rhythm: regular rate and regular rhythm Gastrointestinal (Abdomen): Abdomen soft, nondistended, nontender to palpation. No rebound, guarding or signs of peritonitis Old surgical sites appreciated in RUQ and midline Results & Data Vital Signs (Past 12 Hours) Vital Signs Temp Pulse Resp BP Pulse Ox O2 Del Method 01/03/25 08:20 36.8 C 62 16 138/73 91 Room Air 01/02/25 22:25 36.4 C L 73 16 161/85 H 94 Room Air 01/02/25 22:25 36.4 C L 73 16 161/85 H 94 Room Air PG Care Time/CCT Total # of Minutes Spent Total Time Spent with Patient: Total time spent is greater than 50% in coordination of care (as documented) at patient's floor/unit and/or counseling patient: Coding [place] [address] SUB INP/OBS CARE 08/03MIN Patient Type Established History Problem Focused Exam Problem Focused Medical Decision Making Straight Forward Diagnoses SBO (small bowel obstruction) K56.609
--- NOTE | 2025-01-03 10:08 | XRay Report ---
KUB HISTORY: eval for improving SBO COMPARISON STUDY: CT scan yesterday FINDINGS: There is small bowel distention measuring up to 6 cm greatest diameter at the left upper qu adrant, stable. No colonic distention seen. No gross free air. IMPRESSION: Grossly stable small bowel obstruction. ACT 112: Negative or not required by law. The above report was generated using voice recognition software. It may contain grammatical, syntax o r spelling errors. Electronically signed by: Mark Castro M.D. 01/03/2025 10:07 AM
--- NOTE | 2025-01-03 11:39 | Hospitalist Progress Note ---
Date of Service January 03, 2025 Assessment & Plan (1) Small bowel obstruction: Plan 74-year-old male PMHx HLD, HTN, hereditary hemochromatosis, prediabetes, spinal stenosis, and prior bowel obstruction presenting for "violent" vomiting and nausea starting day of arrival. Did have 1 episode of diarrhea. #SBO Abdominal pain starting 1400 the day [employer], associated N/V x 6 times total, 1 episode of diarrhea. Prior history of bowel obstruction. CBC w/ resolution of leukocytosis. Hgb stable. CTAP: SBO @ level of mid ileum repeat KUB 01/03- showing persistent SBO Surgery consulted - Discussed --> okay for clears, if experiences symptoms downgrade back to NPO status. --> seems to be tolerating clears thus far Continue IV fluids Zofran prn for N/V; tylenol/morphine prn for pain Repeat KUB in AM AM CBC, BMP #Prediabetes Admitting glucose 148 Metformin - hold given recent CT contrast, add SSI if needed; BSG q6hr while NPO #Anxiety Lorazepam prn #Hereditary hemochromoatosis Ferritin level checked after requested --> elevated at 122.9 Per PCP wellness visit from 06/2024 -> does like to keep Ferritin levels between 60-100 Given acute SBO defer phlebotomy at this time - recommend close follow up with PCP AM iron panel #HLD- Atorvastatin - continue once diet advances #HTN- Olmesartan - continue once diet advances #GERD- Pantoprazole - continue once diet advances Dispo: Admit, med/sx VTE prophylaxis: SCDs updated daughter at bedside 01/03 Admission and Anticipated Discharge Date Admission Date: January 02, 2025 Amanda Flores seen and examined this morning. He states that he is doing okay today. reports no abdominal pain, nausea, vomiting. Physical Exam Physical Exam: General: no acute distress; non-toxic appearing; well-nourished; cooperative HEENT: normocephalic, atraumatic; no scleral icterus; PERRLA w/ EOMs intact; vision and hearing grossly intact Neck: trachea midline Skin: warm, dry without signs of tenting; no cyanosis; no rashes, bruising, lesions, or erythema noted Lungs: no acute respiratory distress; symmetrical chest wall expansion ABD: Soft, NTP; hypoactive BS; no rebound/guarding; no distention MSK:no edema noted in the LEs b/l, nonerythematous Neuro: A&Ox3; normal mood and affect; fluent speech; no focal deficits Results & Data Results & Data Vital Signs (Past 12 Hours) Vital Signs Temp Pulse Resp BP Pulse Ox O2 Del Method 01/03/25 08:20 36.8 C 62 16 138/73 91 Room Air PG Care Time/CCT Total # of Minutes Spent Total Time Spent with Patient: Total time spent is greater than 50% in coordination of care (as documented) at patient's floor/unit and/or counseling patient: Coding Level of Care Code 41414 SUB INP/OBS CARE 3/50MIN Diagnoses Small bowel obstruction K56.609
[2025-01-03 12:32] LABS: Ferritin 122.9 ng/ml (8-388)
[2025-01-04 06:51] LABS: Hematocrit (blood only) 42.6 % (42.0-52.0); Mean Corpuscular Hemoglobin 31.4 pg (25.0-34.0); Mean Corpuscular Hgb Conc 35.2 g/dL (32.0-36.0); Mean Corpuscular Volume 89.3 fL (80.0-100.0); Platelet Count 152 K/uL (130-400); RDW Coefficient of Variation 12.7 % (11.5-14.5); RDW Standard Deviation 41.7 fL (36.4-46.3); Red Blood Count 4.77 M/uL (4.70-6.10)
--- NOTE | 2025-01-04 07:09 | Electrocardiogram Report ---
Test Reason : Blood Pressure : */* mmHG Vent. Rate : 94 BPM Atrial Rate : 94 BPM P-R Int : 160 ms QRS Dur : 82 ms QT Int : 364 ms P-R-T Axes : 7 -43 5 degrees QTcB Int : 455 ms Normal sinus rhythm Left axis deviation Cannot rule out Inferior infarct (cited on or before 04-Jan-2002) Abnormal ECG When compared with ECG of 30-Mar-2014 14:32, No significant change was found Confirmed by Harley Butterfield ([id number]) on 01/04/2025 7:09:01 AM Referred By: REFERRED SELF Confirmed By: Harley Butterfield
[2025-01-04 07:25] LABS: Calcium 8.5 mg/dl (8.6-10.3); Creatinine Clr Calc Pharmacy 90.1 ml/min; Potassium 3.9 mmol/L (3.5-5.1)
[2025-01-04 07:54] VITALS: BP 129/73; PULSE 68; RESP 16; TEMP 98.4; O2SAT 90
--- NOTE | 2025-01-04 08:25 | XRay Report ---
EXAM: XR KUB/Abdomen 1 view CLINICAL HISTORY: Shortness of breath. TECHNIQUE: X-ray images of the abdomen were obtained in supine and upright positions. COMPARISON: Prior CT dated 01/02/2025 for comparison. FINDINGS: Gas Pattern: Unchanged dilated small bowel loops likely small bowel obstruction vs ileus. Soft Tissues: Soft tissues of the abdomen appear normal without evidence of masses or calcifications. Liver, spleen, and kidneys are of normal size and position. Spondylotic changes in lumbar spine. IMPRESSION: Unchanged dilated small bowel loops likely small bowel obstruction vs ileus. Electronically signed by Maxi Nava 01-04-2025 08:25 AM
--- NOTE | 2025-01-04 09:14 | Surgery Progress Note ---
Date of Service January 04, 2025 Assessment & Plan (1) SBO (small bowel obstruction): Plan: -Patient clinically improving, he is tolerating clears, passing gas and having BMs. -Patient would like to go home today, plan will be to start a low fiber diet this morning. If he is able to tolerate a diet without any issues, from a surgical standpoint OK fir discharge later today. Admission and Anticipated Discharge Date Admission Date: January 02, 2025 Supervising Physician Co-Signing Physician Notes Patient seen examined, labs image reviewed, agree with above. Admitted with small bowel obstruction in setting of prior abdominal surgeries. Passing gas, having bowel movements, tolerating full liquids. Abdomen soft, nontender, mild distention. Labs unremarkable. KUB personally viewed and interpreted agree with assessment of some dilated small bowel, however there is significant mount of air in the sigmoid colon. Patient with resolving small bowel obstruction, low fiber diet as tolerated, okay to discharge from general surgery standpoint. Surgery will sign off. Subjective Patient doing well over the last 24 hours. Continues to ambulate in the hallway Tolerating clears without any issues. Passing gas and had multiple BMs VSS Physical Exam Constitutional: WD/WN, vitals as above Respiratory: normal respiratory effort, lungs clear to auscultation Cardiovascular: Rate/Rhythm: regular rate and regular rhythm Gastrointestinal (Abdomen): Abdomen soft, nondistended, nontender to palpation. No rebound, guarding or signs of peritonitis Old surgical sites in RUQ and midline appreciated Skin: no rashes, warm and dry Results & Data Vital Signs (Past 12 Hours) Vital Signs Temp Pulse Resp BP Pulse Ox O2 Del Method 01/04/25 07:52 36.9 C 68 16 129/73 90 Room Air 01/04/25 01:11 Room Air PG Care Time/CCT Total # of Minutes Spent Total Time Spent with Patient: Total time spent is greater than 50% in coordination of care (as documented) at patient's floor/unit and/or counseling patient: Coding [place] [address] SUB INP/OBS CARE 08/03MIN Patient Type Established Medical Decision Making Straight Forward Diagnoses SBO (small bowel obstruction) K56.609
--- NOTE | 2025-01-04 10:26 | Discharge Summary ---
Discharge Summary Date of Service January 04, 2025 Principal Dx & Hospital Course #1 = Principal Diagnosis (1) Small bowel obstruction: Plan 74-year-old male PMHx HLD, HTN, hereditary hemochromatosis, prediabetes, spinal stenosis, and prior bowel obstruction presenting for "violent" vomiting and nausea starting day of arrival. Did have 1 episode of diarrhea. #SBO Abdominal pain starting 1400 the day [employer], associated N/V x 6 times total, 1 episode of diarrhea. Prior history of bowel obstruction. CBC w/ resolution of leukocytosis. Hgb stable. CTAP: SBO @ level of mid ileum repeat KUB 01/04- dilated loops of SB likely SBO vs ileus w/ ~ 3 BM's overnight & passing gas, no further abdominal pain N/V --> diet advanced & he tolerated well. Surgery consulted - Discussed --> okay for discharge home 01/04 Zofran prn for N/V; tylenol prn for pain #Prediabetes Admitting glucose 148 Metformin resumed on discharge #Anxiety Lorazepam prn #Hereditary hemochromoatosis Ferritin level checked after requested --> elevated at 122.9 Per PCP wellness visit from 06/2024 -> does like to keep Ferritin levels between 60-100 Given acute SBO defer phlebotomy at this time - recommend close follow up with PCP #HLD- Atorvastatin #HTN- Olmesartan #GERD- Pantoprazole updated daughter at bedside 01/04; patient discharged home 01/04 Admission HPI Per Admitting Provider 74-year-old male PMHx HLD, HTN, hereditary hemochromatosis, prediabetes, spinal stenosis, and prior bowel obstruction presenting for "violent" vomiting and nausea starting day of arrival. At 0900 the patient had an episode of diarrhea, which was the first time he has had that throughout this course. He then had 3 episodes of "aggressive" vomiting, no blood, at around 1300. He was able to rest for a little and then had another 3 episodes of this. He continued to have some abdominal pain, stating it was a 5-6 out of 10 on the pain scale at its worst, currently 0 out of 10 on the pain scale. He is not having any nausea or vomiting at present. He had a bowel obstruction in the past. Had colonoscopy in the past as well. Denies fever/chills, chest pain, SOB, palpitations, constipation, numbness/tingling, LUTS, URI symptoms, or weakness/syncope. He is asking for his lorazepam at night. ED evaluation reveals CBC leukocytosis 12.29, stable H&H; CMP glucose 148, bilirubin 1.5; lipase 14; troponin 11.8; UA with bilirubin, LE, RBC; stool sample pending; CTAP small bowel obstruction level of mid ileum, splenomegaly, left renal cyst, small hiatal hernia, diverticulosis, bladder calculus, large prostate, extensive coronary atherosclerosis; EKG NSR, LAD at 94 bpm.; Provided with 1.5 mL NSS in ED. Please see Dr. Horan's attestation for adjustments/additions to treatment plan. Discharge Exam General: no acute distress; non-toxic appearing; well-nourished; cooperative HEENT: normocephalic, atraumatic; no scleral icterus; PERRLA w/ EOMs intact; vision and hearing grossly intact Neck: trachea midline Skin: warm, dry without signs of tenting; no cyanosis; no rashes, bruising, lesions, or erythema noted Lungs: no acute respiratory distress; symmetrical chest wall expansion MSK:no edema noted in the LEs b/l, nonerythematous Neuro: A&Ox3; normal mood and affect; fluent speech; no focal deficits Discharge Plan Discharge Items Patient Disposition: Home - Self-Care Reason For Visit: SBO Discharge Diagnosis: SBO Condition on Discharge: Fair Activity: Resume your previous activity Non-emergency contact: Primary Care Provider Call non-emergency contact if: you have any medication questions and your symptoms worsen Follow-up/Referrals: Jeanette Schmitt MD [Primary Care Provider] - Diet: Low Fiber Addtl Attending Provider Instructions: Mr. Sousa, You were recently hospitalized secondary to abdominal pain, nausea, and vomiting. You were found to have a bowel obstruction which appears to be resolving. You were able to tolerate a low fiber diet prior to discharge. Please see recommendations below regarding your discharge. Please follow a low fiber diet for at least an additional week following discharge. Please follow up with your PCP within 1-2 weeks for a recheck of labs regarding your hemochromatosis. Please use Zofran as needed every 6 hours in the event you feel nauseous or vomit at home. Please avoid anti-diarrheal medications for a week. The remainder of your medications may be resumed. If you develop any severe abdominal pain, uncontrollable nausea/vomiting, chest pain, or shortness of breath please report back to the ED for further care. Best of luck! Rebeka Morales PA-C Pending Studies at Discharge: No Stand-Alone Forms: My [facility], Smoking Cessation Medications and DC Order Prescriptions: New ondansetron 4 mg tablet,disintegrating 4 mg PO Q6H PRN (Reason: nausea and vomiting) Qty: 30 0RF Continued cholecalciferol (vitamin D3) 50 mcg (2,000 unit) capsule 2,000 unit PO DAILY Patient Comments: takes in the am metformin 500 mg tablet extended release 24 hr 1,000 mg PO DAILY Qty: 180 2RF Hold Instructions: pt stopped due to dizziness Patient Comments: "He stopped taking that himself but don't take it off his list" per lorazepam 0.5 mg tablet 0.5 mg PO DAILY PRN (Reason: ANXIETY/AGITATION) Qty: 30 0RF atorvastatin 10 mg tablet 10 mg PO QAM nystatin-triamcinolone 100,000-0.1 unit/gram-% ointment 1 applic topical BID PRN (Reason: prn) Rx Instructions: x 2 weeks olmesartan 20 mg tablet 10 mg PO QAM sildenafil (pulm.hypertension) 20 mg tablet 20 mg PO UD PRN (Reason: prn) Rx Instructions: 20 mg tablet take 2-3 po daily prn intercourse pantoprazole 40 mg tablet,delayed release (DR/EC) 40 mg PO BID Qty: 60 5RF Discontinued ondansetron HCl 4 mg tablet 4 mg PO Q8H PRN (Reason: nausea and vomiting) Qty: 10 0RF Discharge Orders: Discharge Order (Routine); Ordered 01/04/25 Ordered By: Rebeka Solis/Other Patient Handouts: Low-Fiber Diet Admission Data Admit Date/Time: 01/02/25 20:28 Attending Provider: Francisco Vela Admit Provider: Claudia Horan Primary Care Provider: Jeanette Schmitt Other Providers: Claudia Horan; Espinoza Bravo Other Interventions: Discharge Summary Assessment (RN) Last Done: 06/28/25 10:52 Hospital Stay Data Consultations 01/02/25 19:26 ED Decision to Admit Stat 01/02/25 23:25 Consult General Surgery Routine Diagnostic Imagining Performed 01/02/25 17:08 CT abd pelvis IV con only Stat Pending Results Patient Have Any Pending Studies at Discharge: No Discharge Instructions Given to Patient (Per Discharging Provider) Mr. Sousa, You were recently hospitalized secondary to abdominal pain, nausea, and vomiting. You were found to have a bowel obstruction which appears to be resolving. You were able to tolerate a low fiber diet prior to discharge. Please see recommendations below regarding your discharge. Please follow a low fiber diet for at least an additional week following discharge. Please follow up with your PCP within 1-2 weeks for a recheck of labs regarding your hemochromatosis. Please use Zofran as needed every 6 hours in the event you feel nauseous or vomit at home. Please avoid anti-diarrheal medications for a week. The remainder of your medications may be resumed. If you develop any severe abdominal pain, uncontrollable nausea/vomiting, chest pain, or shortness of breath please report back to the ED for further care. Best of luck! Reebka Morales PA-C Total Time Total Time Spent Total Time Spent (In Minutes): 45 Total Time Includes: Examination of the Patient, Discharge Planning and Medication Reconciliation Coding Level of Care Code 45772 INP/OBS DISCH >30 MIN Diagnoses Small bowel obstruction K56.609
== END 2025-01-04 11:38 | disposition home or self-care (01) | DRG 390 ==
LOC: ED 16:12 → SUATTDRO 20:28 → 3N 20:28